=== PATIENT | female | born 1935 | race Caucasian/White ===

== ENCOUNTER 2016-05-06 13:11 | Emergency (ER) | payer MEDICARE, MEDICAID ==
[2016-05-06 13:38] VITALS: BMI 22.8
--- NOTE | 2016-05-06 13:39 | EDPRACDOC ---
- General Information Chief Complaint: Arrhythmia Stated Complaint: AFIB Time Seen by Provider: 05/06/16 13:36 Home Medications: Home Medications Antiox#10/Om3/Dha/Epa/Lut/Zeax [I-Caps with Lutein-Helen (10mg/280mg)] 1 cap PO DAILY 09/07/14 Metformin HCl [Glucophage] 1,000 mg PO BID 09/07/14 Rosuvastatin [Crestor] 10 mg PO HS 09/07/14 HydrALAZINE (Cardiovascular) [Apresoline] 25 mg PO TID 10/10/14 Lisinopril [Prinivil] 2.5 mg PO DAILY #30 tab 10/17/14 Potassium Chloride 20 meq PO DAILY #90 tablet.er 10/17/14 Furosemide [Lasix] 40 mg PO BID 07/19/15 Isosorbide Mononitrate [Imdur] 60 mg PO DAILY@0600 #30 tablet 07/24/15 Pantoprazole Sodium [Protonix] 40 mg PO 0600 #30 tablet 07/24/15 Apixaban [Eliquis] 2.5 mg PO BID 08/31/15 Diltiazem HCl [Cardizem LA] 360 mg PO DAILY #30 tab.er.24h 05/06/16 Diltiazem HCl [Matzim LA] 360 mg PO DAILY 05/06/16 Humalog Mix 75/25 15 units SQ QHS 05/06/16 Humalog Mix 75/25 18 units SQ QAM 05/06/16 Sertraline HCl 50 mg PO DAILY 05/06/16 Allergies/Adverse Reactions: Allergies Allergy/AdvReac Type Severity Reaction Status Date / Time Beta-Blockers Allergy Unknown See Verified 09/30/15 20:08 (Beta-Adrenergic Bloc Comments - History of Present Illness Onset: TODAY HPI: PT STATES SHE WENT TO HER EYE DOCTOR TODAY, STATES WAS TOLD SHE COULD NOT BE SEEN DUE TO HER "BLOOD PRESSURE", STATES EYE DOCTOR TOLD HER TO GET CHECKED OUT "RIGHT AWAY". PT WENT TO HER PCP WHO COULD NOT SEE HER, WENT TO URGENT CARE, HAD EKG, SHOWED A-FIB RATE 120s, PT REFERRED TO THE ED FOR FURTHER EVALUATION. PT DENIES COMPLAINTS EXCEPT SOBR, NO CP, NO N/V/D, NO FEVER OR CHILLS. PT STATES CURRENTLY ON ABX AND COUGH SYRUP FOR UPPER RESPIRATORY INFECTION. Symptoms Started: Reports: Suddenly, With light exertion Relevant History: Reports: Other (AFIB) Heart Rate (bpm): 125 Pulse is: Irregular, Rapid Worsens with: Reports: Nothing Associated signs & symptoms: Reports: Other (SOBR) Chest Pain Location: Reports: No Pain ED Past Medical History - History Reviewed Yes Nurses notes reviewed and agree except as marked - Patient Medical History Neurological History: Reports: Cerebrovascular Accident, Dementia Cardiac History: Reports: Atrial Fibrillation (Noted 08/2014. Also intermittent aberrancy rather than V tach.), Hypertension, Congestive Heart Failure (ECHO 09/07: EF 55-60%. Diastolic dysfunction. Mild-mod MITRAL REGURG.), Hypercholesterolemia, Valvular Heart Disease (ECHO 09/07/14: Mild-mod MITRAL REGURG.) GI/ History: Reports: Urinary Tract Infection, Gastroesophageal Reflux Psychological History: Reports: Depression, Anxiety. Denies: Substance Use Disorder Systemic History: Reports: Anemia (B-12 deficiency.), Diabetes (Type 2. With Nephropathy.) Surgical History: Reports: Hysterectomy (1979), Tonsillectomy/Adnoidectomy, Other (Benign brain tumor removed 1981, had to remove R eye also.) - Family Medical History Reports: Hypertension (Mother), Cancer, Stroke (Brother), Cardiac Disorders ( Brother). Denies: Diabetes - Social Medical History Smoking Status: Never smoker Social History: Denies: Substance Use Disorder ETOH: None Substance Abuse: None EDM Review of Systems - Review of Systems Constitutional: negative: Chills, Fever Eyes: negative: Blurred Vision, Double Vision Ears: negative: Drainage Throat: negative: Pain Nose: negative: Congestion, Discharge Respiratory: Cough, Shortness of Breath. negative: Wheezing Cardiovascular: Palpitations. negative: Chest Pain Gastrointestinal: negative: Diarrhea, Nausea, Pain, Vomiting Genitourinary: negative: Dysuria, Frequency Neurological: negative: Dizziness, Headache, Numbness, Weakness Musculoskeletal: No Symptoms Reported Integumentary: No Symptoms Reported - Physical Exam Constitutional: Alert (Awake), No apparent distress Oriented to: Time, Person, Place Last recorded Vital Signs: Oxygen Pulse Oxygen Saturation O2 Device Oxygen Flow Rate Fraction of Inspired Oxygen ( FIO2) - HEENT Head: Normal ( normocephalic) Eye Exam: Normal (PERRL, EOMI, Sclera white) Oropharynx: Normal (Pharynx:Moist without exudate,Gums-no swelling) Tympanic Membrane: Normal ENT EAC: Normal TMJ: Normal Nose: No Symptoms Reported (septum midline) Neck: Normal (FROM, trachea at midline) - Respiratory/Cardiovascular Respiratory: Normal - CTA (BBS clear to auscultation without adventitious sounds ) Cardiovascular: Tachycardia, Irregular - GI Auscultation: Normal (NABS) Palpation: Normal (Soft,No rebound or guarding, non distended) Tenderness: Non tender Ayon's Sign: Negative - Musculoskeletal Back: Normal (Non-Tender) Extremities: Normal (Normal tone, Pulses 2+ No cyanosis or edema, FROM) - Integumentary Skin: Normal, Warm, Dry Lymphatics: Normal (no adenopathy) - Neurologic Memory Impaired: Normal Motor Function: Normal (Normal tone, Pulses 2+ No cyanosis or edema, FROM) Cranial Nerve: Normal (CN II-X11 intact sensation, strength 5/5) Cerebellar: Normal Mood Description: Normal Perception: Normal - Differential Diagnosis Atrial fibrillation - Re-evaluation Re-evaluation 1 Re-evaluation Time: 15:39 (NO COMPLAINTS, DTR STATES THAT PT IS SUPPOSED TO BE ON CARDIZEM 360 MG BUT MED WAS NOT AVAILABLE SO PCP REDUCED IT TO 240 MG A COUPLE OF WEEKS AGO) Re-evaluation 2 Re-evaluation Time: 17:06 (BP STABLE, HR IMPROVED) - Results 05/06/16 14:00 05/06/16 14:00 05/06/16 15:26 Laboratory Results - last 24 hr 05/06/16 05/06/16 05/06/16 14:00 14:00 14:00 WBC 8.8 RBC 3.94 L Hgb 10.4 L Hct 31.9 L MCV 81 MCH 26.5 L MCHC 32.7 L RDW 17.6 H Plt Count 287 MPV 7.6 Neut % (Auto) 75.8 Lymph % (Auto) 14.4 L [place] % (Auto) 8.4 Eos % (Auto) 0.8 Baso % (Auto) 0.6 Absolute Neuts (auto) 6.60 Absolute Lymphs (auto) 1.23 PT 11.9 H INR 1.2 APTT 24.0 Sodium 140 Potassium 5.0 Chloride 103 Carbon Dioxide 20 L Anion Gap 22 H BUN 21 H Creatinine 1.20 H Estimated GFR (MDRD) 43 L Glucose 180 H Calculated Osmolality 277 Calcium 10.8 H Total Bilirubin 0.9 AST 21 ALT 25 Alkaline Phosphatase 60 Troponin I < 0.01 Wli-O-Tkhummbcabx Pept 3870 H Total Protein 7.0 Albumin 4.0 Digoxin 0.60 L - EKG EKG #1 Initial EKG Time: 13:37 -: Yes EKG interpreted by me Rate: bpm: 126 [place]: RAD Rhythm: Afib Block: None Hypertrophy: None ST: Nonsp Comparison: 09/30/15 (RATE INCREASED O/W NO CHANGE) - Diagnostic Imaging CXR Image interpreted by: Radiologist PORTABLE CHEST 1 VIEW COMPARISON: Portable exam 1414 hours compared to 09/30/2015 FINDINGS: Borderline enlargement of cardiac silhouette. Atherosclerotic calcification aorta. Mediastinal contours and pulmonary vascularity normal. Lungs grossly clear. Question underlying emphysematous changes. No pleural effusion or pneumothorax. Bones demineralized. IMPRESSION: No acute abnormalities. - Additional Information Additional Information: OLD CHART REVIEWED, ALL LABS AT BASELINE. PT AND DAUGHTER STATE NO LONGER ON DIGOXIN. DTR STATES THAT PT AND HER RECENTLY MOVED BACK HOME FROM [facility]. Decision Time to Discharge: 17:06 - Departure Disposition: Home Condition: Stable Final Diagnosis: Atrial fibrillation with RVR Instructions: Atrial Fibrillation (ED) Education/Counseling Given To: Patient Education/Counseling Given Regarding: Diagnosis, Treatment, Prognosis, Follow Up Referrals: None,No Provider [Primary Care Provider] - One Week Prescriptions: Diltiazem HCl [Cardizem LA] 360 mg PO DAILY #30 tab.er.24h Forms: ED Discharge Instructions Additional Instructions: CONTINUE YOUR USUAL MEDICATIONS BEFORE, RETURN TO THE ED FOR ANY WORSENING SYMPTOMS OR CONCERNS.
[2016-05-06] MEDS ORDERED: SODIUM CHLORIDE 0.9% 10 ML FLUSH FLUSH PRN (13:40)
[2016-05-06] MEDS ORDERED: DILTIAZEM 25 MG/5 ML VIAL IV ONE ×2 (13:41→15:39)
[2016-05-06 14:22] LABS: AUTOMATED BASOPHIL 0.6 % (0-2); AUTOMATED EOSINOPHIL 0.8 % (0-5); AUTOMATED LYMPH 14.4 % (17-44); AUTOMATED MONOCYTE 8.4 % (3-10); AUTOMATED NEUTROPHIL 75.8 % (45-76); MPV 7.6 fL (7.4-10.4)
[2016-05-06 14:34] LABS: PT-INR 1.2
--- NOTE | 2016-05-06 14:34 | DIRPT ---
CLINICAL DATA: Cough, shortness of breath, blood pressure elevation, atrial fibrillation, currently on antibiotics for URI EXAM: PORTABLE CHEST 1 VIEW COMPARISON: Portable exam 1414 hours compared to 09/30/2015 FINDINGS: Borderline enlargement of cardiac silhouette. Atherosclerotic calcification aorta. Mediastinal contours and pulmonary vascularity normal. Lungs grossly clear. Question underlying emphysematous changes. No pleural effusion or pneumothorax. Bones demineralized. IMPRESSION: No acute abnormalities. Electronically Signed By: Thony Merlos M.D. On: 05/06/2016 14:32
[2016-05-06 14:39] LABS: BLOOD UREA NITROGEN 21 MG/DL (7-17); CALCIUM 10.8 MG/DL (8.4-10.2); CALCULATED OSMOLALITY 277 MOs/Kg (270-290); CHLORIDE 103 mEq/L (98-107); GLUCOSE 180 MG/DL (70-99); SODIUM LEVEL 140 mEq/L (137-146)
[2016-05-06 15:53] VITALS: TEMP 98.1
[2016-05-06 16:07] LABS: LEUKOCYTES/URINE NEG (NEGATIVE); NITRITE/URINE NEG (NEGATIVE); RBC/URINE 0-2 (0-5); URINE OCCULT BLOOD NEG (NEG/TRACE); WBC/URINE 0-2 (0-5)
[2016-05-06 17:19] VITALS: BP 160/77
[2016-05-06 17:20] VITALS: PULSE 112
== END 2016-05-06 17:19 | disposition home or self-care (01) ==
LOC: ED 13:11
DX: I48.91 Unspecified atrial fibrillation (principal); F03.90 Unspecified dementia, unspecified severity, without behavioral disturbance, psychotic disturbance, mood disturbance, and anxiety; I10 Essential (primary) hypertension; I50.9 Heart failure, unspecified; E78.00 Pure hypercholesterolemia, unspecified; D51.9 Vitamin B12 deficiency anemia, unspecified; E11.40 Type 2 diabetes mellitus with diabetic neuropathy, unspecified; K21.9 Gastro-esophageal reflux disease without esophagitis; Z86.73 Personal history of transient ischemic attack (TIA), and cerebral infarction without residual deficits; Z79.4 Long term (current) use of insulin; Z79.899 Other long term (current) drug therapy
CPT/HCPCS: 36415; 71010; 80053; 80162; 81001; 83880; 84484; 85025; 85610; 85730; 93005; 96374; 96375; 99283; J3490